=== PATIENT | male | born 1945 | race Caucasian/White ===

== ENCOUNTER 2017-10-16 13:52 | Inpatient (IN) | payer MEDICARE, OTHER ==
[~2017-10-16] VITALS: Ht 177.8 cm; Wt 79.4 kg
[2017-10-16 14:00] VITALS: BP 171/91
[2017-10-16] MEDS ORDERED: NORVASC5 MG PO (14:11)
[2017-10-16] MEDS ORDERED: BYSTOLIC10 MG PO (14:11)
[2017-10-16] MEDS ORDERED: ACCUPRIL40 MG PO (14:11)
[2017-10-16] MEDS ORDERED: NORVASC2.5 MG PO (14:12)
[2017-10-16] MEDS ORDERED: ASPIR 8181 MG PO (14:12)
[2017-10-16] MEDS ORDERED: LIPITOR 20 MG T20 M1 PO (14:12)
[2017-10-16] MEDS ORDERED: B12INJ PO (14:13)
[2017-10-16] MEDS ORDERED: VITAMINC500 PO (14:13)
[2017-10-16] MEDS ORDERED: VITAMIN E400 UNIT PO (14:13)
[2017-10-16] MEDS ORDERED: CALCIUM 600 +1 EAC1 PO (14:13)
[2017-10-16] MEDS ORDERED: VITAMIN D3400 UNIT PO (14:14)
[2017-10-16] MEDS ORDERED: FOLIC ACID1 MG PO (14:14)
[2017-10-16] MEDS ORDERED: GLUCOSAMINE HC500 MG PO (14:15)
[2017-10-16] MEDS ORDERED: FISH OIL 1,001000 M2 PO (14:15)
[2017-10-16] MEDS ORDERED: BIOTIN5000 MCG PO (14:15)
[2017-10-16 15:05] LABS: ABSOLUTE BASOPHILS 0.1 thou/uL (0.0-0.2); ABSOLUTE EOSINOPHILS 0.1 thou/uL (0.0-0.7); ABSOLUTE LYMPHOCYTES 1.9 thou/uL (0.8-5.3); ABSOLUTE MONOCYTES 0.5 thou/uL (0.0-1.2); ABSOLUTE NEUTROPHILS 3.1 thou/uL (1.6-8.1); BASOPHILS 0.9 %; EOSINOPHILS 1.1 %; HEMATOCRIT 38.8 % (42.0-52.0); HEMOGLOBIN 13.2 gm/dL (14.0-18.0); LYMPHOCYTES 33.5 %; MCHC 34.1 g/dL (28.0-37.0); MCV 102.5 fL (80.0-100.0); MONOCYTES 8.8 %; MPV 7.6 fl. (7.2-11.1); NUCLEATED RBCS 0 /100WBC; PLATELET COUNT* 215 thou/uL (150-400); POLYS 55.7 %; RBC 3.78 mil/uL (4.50-6.00); RDW-CV 13.8 % (10.5-14.5); WBC 5.6 thou/uL (4.0-11.0)
[2017-10-16 15:12] LABS: CALCIUM 8.6 mg/dL (8.5-10.1); POTASSIUM 3.9 mmol/L (3.5-5.1)
[2017-10-16 15:17] LABS: ALBUMIN 3.5 g/dL (3.4-5.0); TOTAL BILIRUBIN 0.5 mg/dL (<0.1-1.0)
--- NOTE | 2017-10-16 15:46 | NUR ---
PT RETURNED FROM CT
[2017-10-16 20:15] VITALS: BP 148/69
[2017-10-16 20:30] VITALS: BP 169/66
[2017-10-17 00:01] VITALS: BP 150/73
[2017-10-17 04:00] VITALS: BP 143/75
--- NOTE | 2017-10-17 04:26 | NUR ---
ASSUMED PT CARE AT 2020, PT IS A&OX4, PT IS TRACING NSR ON THE MONITOR, WITH A 1DAVB. PT IS ON RA SATTING MID TO HIGH 90'S. PT HAS IVF INFUSING PER MAR. ADMISSION ASSESSMENT COMPLETED CHARTED. PT C/O RIGHT SIDED NECK PAIN, PRN PAIN MEDICATIONS GIVEN PER NOV. PT IS UP AD DILLAN IN HIS ROOM AND STABLE ON HIS FEET. BED IN LOW POSITION, CALL LIGHT IN REACH. HOURLY ROUNDING COMPLETED FOR PT SAFETY.
[2017-10-17 04:59] LABS: ABSOLUTE BASOPHILS 0.1 thou/uL (0.0-0.2); ABSOLUTE EOSINOPHILS 0.1 thou/uL (0.0-0.7); ABSOLUTE LYMPHOCYTES 2.5 thou/uL (0.8-5.3); ABSOLUTE MONOCYTES 0.6 thou/uL (0.0-1.2); ABSOLUTE NEUTROPHILS 2.9 thou/uL (1.6-8.1); BASOPHILS 1.4 %; EOSINOPHILS 1.8 %; HEMATOCRIT 40.3 % (42.0-52.0); HEMOGLOBIN 13.8 gm/dL (14.0-18.0); LYMPHOCYTES 40.6 %; MCHC 34.2 g/dL (28.0-37.0); MCV 102.1 fL (80.0-100.0); MONOCYTES 9.7 %; MPV 8.2 fl. (7.2-11.1); NUCLEATED RBCS 0 /100WBC; PLATELET COUNT* 213 thou/uL (150-400); POLYS 46.5 %; RBC 3.95 mil/uL (4.50-6.00); RDW-CV 13.9 % (10.5-14.5); WBC 6.2 thou/uL (4.0-11.0)
[2017-10-17 05:00] LABS: CALCIUM 8.4 mg/dL (8.5-10.1); CREATININE 1.2 mg/dL (0.6-1.3)
[2017-10-17 08:30] VITALS: BP 173/71
--- NOTE | 2017-10-17 11:40 | NUR ---
ASSUMED PT CARE AT 0700 PT IS ALERT AND ORIENTED X 4 PT C/O PAIN GAVE PT TYLENOL PT REFUSES TRAMADOL. PT DENIES SOA ON RA PT IS UP AD DILLAN PT IS NOT A FALL RISK, PT GIVEN ANTIBIOTICS FOR INFECTION IN CAROTID, PT IS SR WITH 1ST, PT IS COOPERATIVE, WILL CONTINUE TO MONITOR
[2017-10-17 12:00] VITALS: BP 159/68
--- NOTE | 2017-10-17 14:24 | NUR ---
INITIAL ASSESSMENT: Pt evaluated for d/c planning needs. Reviewed chart and spoke with nurse and pt. Pt is alert and oriented. [place] and was independent with ADL's prior to admission. Pt has walker at home, but does not normally use. Pt has had home health in the past. Pt plans on returning home on d/c from hospital. Will remain available to assist as needed.
[2017-10-17 20:00] VITALS: BP 168/71
[2017-10-18] VITALS: BP 156/59
--- NOTE | 2017-10-18 03:25 | NUR ---
ASSUMED PT CARE AT 1930, PT IS A&OX4, PT IS MED SURG, ON RA SATTING MID TO HIGH 90'S. PT C/O SOME NECK PAIN, PRN PAIN MEDICATIONS GIVEN PER NOV, WITH RELIEF. PT IS UP AD DILLAN IN HIS ROOM AND APPEARS STABLE ON HIS FEET. PT SLEPT WELL THROUGHOUT THE NIGHT. BED IN LOW POSITION, CALL LIGHT IN REACH. HOURLY ROUNDING COMPLETED FOR PT SAFETY.
--- NOTE | 2017-10-18 07:15 | NUR ---
ASSUMED CARE OF PT ASSESSED AND DOCUMENTED. PT IS A&O WITH NO C/O PAIN. PT IS ON ROOM AIR AND IS AFEBRILE. BED IS IN LOW POSITION CALL LIGHT IS IN REACH. WM.
[2017-10-18 08:00] VITALS: BP 175/81
[2017-10-18 12:00] VITALS: BP 145/81
[2017-10-18 14:00] VITALS: BP 115/77
--- NOTE | 2017-10-18 17:32 | NUR ---
PT HAS RESTED IN HIS ROOM THIS SHIFT WATCHING TV OR USING IPAD. PT HAS HAD NO S OR SX OF ADVERSE REACTION TO ABT. EDUCATION GIVEN ON DEMAND. HOURLY ROUNDING COMPLETE. PT STATES HIS TONSILS MAY BE GETTING SORE. NOTHING OBSERVED AT THIS TIME.
[2017-10-18 20:00] VITALS: BP 160/83
[2017-10-19 00:01] VITALS: BP 159/74
--- NOTE | 2017-10-19 01:34 | NUR ---
PATIENT RESTING THROUGHOUT NIGHT WITHOUT COMPLAINTS. CONT. TO BE UP AD DILLAN. NO COMPLAINTS OF PAIN OR DISCOMFORT AT THIS TIME. WILL PROCEED WITH CURRENT PLAN OF CARE AT THIS TIME. NO SIGN OF DISTRESS AT THIS TIME.
[2017-10-19 05:31] LABS: ABSOLUTE EOSINOPHILS 0.1 thou/uL (0.0-0.7); ABSOLUTE LYMPHOCYTES 1.8 thou/uL (0.8-5.3); ABSOLUTE MONOCYTES 0.5 thou/uL (0.0-1.2); ABSOLUTE NEUTROPHILS 3.1 thou/uL (1.6-8.1); BASOPHILS 0.8 %; EOSINOPHILS 1.9 %; HEMATOCRIT 41.5 % (42.0-52.0); HEMOGLOBIN 14.2 gm/dL (14.0-18.0); LYMPHOCYTES 32.3 %; MCHC 34.2 g/dL (28.0-37.0); MCV 102.3 fL (80.0-100.0); MONOCYTES 9.4 %; MPV 7.9 fl. (7.2-11.1); NUCLEATED RBCS 0 /100WBC; PLATELET COUNT* 223 thou/uL (150-400); POLYS 55.6 %; RBC 4.05 mil/uL (4.50-6.00); RDW-CV 13.7 % (10.5-14.5); WBC 5.6 thou/uL (4.0-11.0)
[2017-10-19 05:44] LABS: ALBUMIN 3.3 g/dL (3.4-5.0); CALCIUM 8.6 mg/dL (8.5-10.1); POTASSIUM 3.8 mmol/L (3.5-5.1); TOTAL BILIRUBIN 0.6 mg/dL (<0.1-1.0); TOTAL PROTEIN 6.8 g/dL (6.4-8.2)
[2017-10-19 08:00] VITALS: BP 155/110
--- NOTE | 2017-10-19 10:44 | CON ---
[address] [address] CONSULTATION Name: FARHAN VENTURA Room: [address] IN M.R.#: [id number] Admission: 10/16/17 Attend Phys: Leonard Bashir MD Discharge: Date of : 43 Report #: [id number] THIS REPORT FOR: //name// CC: Leonard Zamoracuate DATE OF SERVICE: 10/18/2017 INFECTIOUS DISEASE CONSULTATION ATTENDING PHYSICIAN: Leonard Bashir M.D. REASON FOR EVALUATION: Possible endovascular infection, right carotid. HISTORY OF PRESENT ILLNESS: Chart reviewed, patient examined. This is a 72-year-old with history of hypertension who developed neck pain, initially bilateral, was diagnosed with bilateral otitis media, was treated with amoxicillin, clavulanic acid over the course of the last 2-3 weeks, some of it had improved; however, had persistent pain associated with the right neck. There was clear tender adenopathy as well. He noted some involvement of the teeth, although not described quite pain. It is not clear that he has had any recent fevers. He has had some swallowing difficulties and a little dyspnea. No diarrhea. Denies any anorexia. Initial MRI raised a question of some inflammation, somewhat circumferential including suspected rim-type lesion on the carotid bulb prompted admission. CT of the neck with contrast showed some high grade stenosis of the right proximal internal carotid estimated at 90%. No abnormal fluid collections. Lactic acid was 0.7. White count was 5.6. CRP was less than 2. Sed rate was at 11. Blood cultures are sterile thus far. He was empirically started on ceftriaxone. At this point, he is not overtly toxic, has persistent pain. ALLERGIES: None known. MEDICATIONS: Include clopidogrel, fentanyl, amlodipine, folic acid, cholecalciferol, cyanocobalamin, ascorbic acid, aspirin, atorvastatin, lisinopril, nebivolol, pantoprazole, ceftriaxone, enoxaparin, tramadol. PAST MEDICAL HISTORY: Hypertension, history of cataract surgery, did have a pulmonary embolism after surgery on the left. SOCIAL HISTORY: Former smoker, occasional ethanol. FAMILY HISTORY: Noncontributory. REVIEW OF SYSTEMS: As above. [place] [address] CONSULTATION Name: FARHAN VENTURA Room: [address]#: [id number] Admission: 10/16/17 Attend Phys: Leonard Bashir MD Discharge: Date of : 43 Report #: [id number] PHYSICAL EXAMINATION: GENERAL: He is alert, cooperative, nontoxic. He appears to be generally well nourished. VITAL SIGNS: Temperature 97.5, pulse 78, respirations 15, blood pressure 142/67. SKIN: Warm, dry, no rashes. HEENT AND NECK: Otherwise, unremarkable with the exception of some asymmetry involving soft tissue swelling in the right neck. He has a focal area of tenderness. I do appreciate some adenopathy. Oropharynx without lesion. LUNGS: Generally clear. HEART: Regular. No appreciated murmur. ABDOMEN: Soft, nontender, nondistended. EXTREMITIES: No cyanosis. GENITOURINARY AND RECTAL: Deferred. LABORATORY DATA: Blood cultures sterile thus far. CBC: White count 6.2, H and H 13.8 and 40.3, platelets of 213. Carotid Dopplers show 60-70% right proximal ICA stenosis. CT neck as described above. Electrolytes: Sodium 141, potassium 3.9, chloride 104, bicarbonate is 29, BUN and creatinine 19 and 1.0, glucose of 94. LFTs unremarkable. Albumin of 3.5, total protein 7.0. ASSESSMENT: Right-sided neck pain with some adenopathy. I think the weight of the evidence favors probably against the endovascular infection at this point. He has been on antibiotics, which may skew culture results, although I would expect him to be somewhat more toxic at this point. We will wait out the results of the antibiotics. Discussed with Dr. Bashir. Continue empiric ceftriaxone. I think it is reasonable at this point. <ELECTRONICALLY SIGNED> By: Jace Arellano MD 10/19/17 1044 1218 02Joannabel Arellano MD /nt
--- NOTE | 2017-10-19 10:59 | NUR ---
ASSUMED RESPONSIBILITY OF PT THIS AM ALERT AND ORIENTED UP AD DILLAN C/O SOME PAIN 2 OUT OF 10 'NOT ENOUGH TO NEED ANYTHING' MED SURG STATUS ON ROOM AIR 20G TO LEFT WRIST SL EXCEPT FOR IV ANTIBIOTICS LBM LAST HS ON HEART HEALTHY DIET VASCULAR TO SEE PT TODAY PT HAS THE MRI ON HIS PATIENT PORTAL AND HOSP. AWARE OF THIS WAITING ON THE PLAN CALL LIGHT IN REACH
[2017-10-19 11:37] VITALS: BP 150/69
[2017-10-19] MEDS ORDERED: PLAVIX 75 MG TA75 M1 PO (13:11)
[2017-10-19 13:14] VITALS: BP 150/69
[2017-10-19] MEDS ORDERED: AUGMENTIN 875-1 EACH PO (13:25)
--- NOTE | 2017-10-19 13:33 | NUR ---
PT DISCHARGED TO HOME PRESCRIPTIONS CALLED IN TO [facility] IN [place] PT WITHOUT CONCERNS OR ISSUES IV DISCONTINUED FOLLOW UP WITH VASCULAR AND ID
--- NOTE | 2017-10-21 14:16 | CON ---
[address] [address] CONSULTATION Name: FARHAN VENTURA Room: [address] IN M.R.#: [id number] Admission: 10/16/17 Attend Phys: Leonard Bashir MD Discharge: 10/19/17 Date of : 43 Report #: [id number] THIS REPORT FOR: //name// CC: Leonard Andrews DICTATED BY: Marivel FRANCIS DATE OF SERVICE: 10/17/2017 This is TICO Mayen dictating in collaboration with Cayetano Lee DO REASON FOR CONSULTATION: Carotid stenosis. HISTORY OF PRESENT ILLNESS: The patient is a very pleasant 72-year-old male who is known to our practice with a history of carotid artery stenosis. He follows with Dr. Dunn ____ as an outpatient. His most recent carotid duplex was obtained on 09/25/2017, which demonstrated a less than 50% stenosis in bilateral internal carotid arteries. He reports that a couple of weeks ago, he developed some throat pain with swallowing. He denies a raw sore throat type feeling, but was having pain with swallowing and felt like he had enlarged lymph nodes. He went to an urgent care clinic close to his home, was diagnosed with bilateral ear infections with enlarged lymph nodes and was prescribed Augmentin for 10 days. His symptoms continued despite continuing his antibiotic therapy; therefore, he went to his primary care physician. He was found to be tender in the right neck, therefore was sent for an MRI. He reports he was contacted by his primary care physician with some concern of a right carotid artery infection, therefore was advised to come to the hospital for further evaluation and treatment. A neck CT was obtained upon admission, which shows moderately high grade stenosis with the proximal right internal carotid artery at the vault. A carotid Doppler was also obtained, which demonstrates approximately 60%-70% stenosis in the right internal carotid artery with a peak systolic velocity of 209. We have been asked to evaluate the patient and give our opinion regarding these findings. PAST MEDICAL HISTORY: 1. Carotid artery stenosis. 2. Hypertension. 3. Cataracts. 4. Osteoarthritis. 5. Pulmonary emboli after his knee surgery. PAST SURGICAL HISTORY: 1. Cataract surgery. 2. [place] [address] CONSULTATION Name: FARHAN VENTURA Room: [address]#: [id number] Admission: 10/16/17 Attend Phys: Leonard Bashir MD Discharge: 10/19/17 Date of : 43 Report #: [id number] SOCIAL HISTORY: He is a former smoker, denies any illicit drug use. Reports he drinks a glass of wine daily. ALLERGIES: No known drug allergies. HOME MEDICATIONS: 1. Bystolic 10 mg daily. 2. Accupril 40 mg daily. 3. Norvasc 2.5 mg daily. 4. Lipitor 20 mg daily. 5. Aspirin 81 mg daily. 6. Caltrate 600 plus vitamin D 1 tablet daily. 7. Vitamin C 500 mg daily. 8. Vitamin E 400 units daily. 9. Cyanocobalamin 1000 mcg daily. 10. Vitamin D3 400 units daily. 11. Folic acid 1 mg daily. 12. Biotin 5000 mcg daily. 13. Glucosamine HCL 500 mg 3 times daily. 14. Fish oil 1000 mg twice daily. REVIEW OF SYSTEMS: A 12-point review of systems has been reviewed and is negative except for the above-mentioned in the history of present illness. PHYSICAL EXAMINATION: VITAL SIGNS: Temperature 36.7, heart rate 48, respiratory rate 18, blood pressure 159/68. GENERAL: He is alert and oriented, in no acute distress. HEENT: Head is normocephalic, atraumatic. NECK: Supple, mild tenderness on the right side of his neck. No carotid bruit or jugular venous distention. HEART: Bradycardia. Regular rhythm. CHEST: Lungs clear to auscultation bilaterally. ABDOMEN: Soft, nontender, positive bowel sounds in all quadrants. EXTREMITIES: Palpable bilateral radial, femoral and pedal pulses. NEUROLOGIC: He is alert and oriented with no focal neurologic deficits. LABORATORY DATA: Hemoglobin 13.8, hematocrit 40.3, white blood cell count 6.2, platelets 213. Sodium 142, potassium 4.0, chloride 105, CO2 of 26, BUN 18, creatinine 1.2, glucose is 83. ASSESSMENT AND PLAN: 1. Carotid artery stenosis. Recent carotid Doppler obtained in our office demonstrated a less than 50% stenosis in the right internal carotid artery. Carotid duplex obtained yesterday demonstrates a peak systolic velocity of 209 [facility] [address] [place] [address] CONSULTATION Name: FARHAN VENTURA Room: [address] IN [facility]#: [id number] Admission: 10/16/17 Attend Phys: Leonard Bashir MD Discharge: 10/19/17 Date of : 43 Report #: [id number] cm/sec suggestive of 60%-70% stenosis. Surgeon will review his imaging, may benefit from a CT angiogram of the neck to further delineate his disease. He denies any cerebrovascular accident or transient ischemic attack type symptoms. 2. Hypertension. We thank you for the opportunity to participate in care of the patient. Please feel free to contact our office with any questions or concerns. <ELECTRONICALLY SIGNED> By: Cayetano Lee DO 10/21/17 1416 1650 [id number] Lee DO /nt
== END 2017-10-19 13:38 | disposition home or self-care (01) | DRG 68 ==
LOC: M.ERS 13:52 → M.TBA-ER 17:06 → M.2W 17:06
PROVIDERS: Emergency Medicine Emergency Medical Services; ADMIT Internal Medicine
DX: I65.21 Occlusion and stenosis of right carotid artery (principal); I10 Essential (primary) hypertension; M19.90 Unspecified osteoarthritis, unspecified site; R59.9 Enlarged lymph nodes, unspecified; Z87.891 Personal history of nicotine dependence; Z86.711 Personal history of pulmonary embolism; Z79.899 Other long term (current) drug therapy; Z98.42 Cataract extraction status, left eye; Z98.41 Cataract extraction status, right eye